=== PATIENT | male | born 1945 | race Caucasian/White ===

== ENCOUNTER 2025-04-25 11:06 | Outpatient (CLI) | payer MEDICARE, SELFPAY ==
--- NOTE | ~2025-04-25 | US_ITS ---
Thyroid ultrasound. Clinical History: Thyrotoxicosis Findings: Real-time sonography of the thyroid gland was performed. The right lobe measures 5.6 x 1.7 x 1.8 cm. The left lobe measures 4.7 x 1.4 x 1.6 cm. The isthmus is 5 mm in AP diameter. There is a 1.1 cm benign simple cystic nodule at the right midpole anteriorly. There is a 6 mm probab le spongiform nodule at the right upper pole. There is a 0.9 cm spongiform nodule at the left upper p ole. Impression: Benign-appearing thyroid nodules, as detailed above.. Reviewed, dictated and finalized at location M. Impression: Benign-appearing thyroid nodules, as detailed above..
== END 2025-04-25 11:07 | disposition home or self-care (01) ==
LOC: MICIMG 11:07
PROVIDERS: PCP Internal Medicine; Visit Provider Internal Medicine
DX: E04.2 Nontoxic multinodular goiter (principal)
CPT/HCPCS: 76536